=== PATIENT | male | born 1975 | race Caucasian/White ===

== ENCOUNTER 2019-10-15 19:54 | Emergency (ER) | payer SELFPAY ==
[~2019-10-15] VITALS: Ht 162.5 cm; Wt 68.0 kg
[~2019-10-15 19:54] MED LIST: CIPROFLOXACIN500 MG PO
[2019-10-15] MEDS ORDERED: ULTRAM50 MG PO (22:39)
== END 2019-10-15 23:49 | disposition home or self-care (01) ==
LOC: ED 19:54
DX: S82.891A Other fracture of right lower leg, initial encounter for closed fracture (principal); X58.XXXA Exposure to other specified factors, initial encounter; Y93.39 Activity, other involving climbing, rappelling and jumping off; Y92.89 Other specified places as the place of occurrence of the external cause; Y99.8 Other external cause status

== ENCOUNTER → 2020-09-27 | Outpatient (CLI) | payer SELFPAY ==
[~2020-09-27] MED LIST changes: +ULTRAM50 MG PO
== END | disposition home or self-care (01) ==
LOC: COVID19 12:46
PROVIDERS: ATTEND Student in an Organized Health Care Education/Training Program
DX: Z20.822 Contact with and (suspected) exposure to COVID-19 (principal)